=== PATIENT | male | born 1960 | race Native Hawaiian/Other Pacific Islander ===

== ENCOUNTER 2020-09-03 12:25 | Emergency (ER) | payer SELFPAY ==
--- NOTE | 2020-09-03 12:58 | Event Note ---
ED Screening Note Date of service: 09/03/20 Time: 12:57 ED Screening Note: Patient complains of cough and sore throat x4 days Denies past medical history No shortness of breath or hemoptysis This initial assessment/diagnostic orders/clinical plan/treatment(s) is/are subject to change based on patients health status, clinical progression and re- assessment by fellow clinical providers in the ED. Further treatment and workup at subsequent clinical providers discretion. Patient/guardian urged not to elope from the ED as their condition may be serious if not clinically assessed and managed. Initial orders include: Chest x-ray Strep
--- NOTE | 2020-09-03 13:32 | XRay Report ---
CHEST 2 VIEWS INDICATION / CLINICAL INFORMATION: cough. COMPARISON: None available. FINDINGS: SUPPORT DEVICES: None. HEART / MEDIASTINUM: No significant abnormality. LUNGS / PLEURA: Subsegmental opacity in the left lower lobe overlying the spine on lateral view. No p leural effusion. No pneumothorax. ADDITIONAL FINDINGS: No significant additional findings. IMPRESSION: 1. Left lower lobe subsegmental opacity possibly representing developing pneumonia. Recommend clinica l correlation and continued follow-up until resolution. Signer Name: Gaudencio De Leon MD Signed: 09/03/2020 1:28 PM Workstation Name: [id number]
[2020-09-03 14:46] LABS: Basophils # (Auto) 0.1 K/mm3 (0.0-0.1); Basophils % (Auto) 1.7 % (0.0-1.8); Hemoglobin 15.4 gm/dl (11.8-15.2); Lymphocytes # (Auto) 0.9 K/mm3 (1.2-5.4); Lymphocytes % (Auto) 18.2 % (13.4-35.0); Mean Corpuscular HGB Conc 34 % (32-34); Mean Corpuscular Volume 87 fl (84-94); Monocytes # (Auto) 0.5 K/mm3 (0.0-0.8); Monocytes % (Auto) 10.6 % (0.0-7.3); Platelet Count 161 K/mm3 (140-440); Red Blood Count 5.21 M/mm3 (3.65-5.03); Red Cell Distribution Width 13.5 % (13.2-15.2)
[2020-09-03 15:09] LABS: Alanine Aminotransferase 91 units/L (7-56); Albumin 3.8 g/dL (3.9-5); BUN/Creatinine Ratio 18; Blood Urea Nitrogen 14 mg/dL (9-20); Calcium 8.5 mg/dL (8.4-10.2); Hemolysis Index 4
[2020-09-03] MEDS ORDERED: AMOXICILLIN/K CLAV 875/125MG TAB PO ONE (15:45)
[2020-09-03] MEDS ORDERED: AZITHROMYCIN 250 MG TAB PO ONE (15:46)
--- NOTE | 2020-09-03 15:52 | Emergency Department Report ---
ED General Adult HPI - General Chief complaint: Sore Throat Stated complaint: COUGH Time Seen by Provider: 09/03/20 12:56 Source: patient Mode of arrival: Ambulatory Limitations: No Limitations - History of Present Illness Initial comments: Patient is a 59-year-old male with no significant past medical history who presents to the emergency department with complaint of cough and sore throat. Patient reports that he has had symptoms for the past few days. He denies any sick contacts or anyone else is sick in the home. He denies anyone around him has tested positive for COVID-19. He denies chest pain as well as shortness of breath. He does endorse some body aches and fevers. He also has had sore throat. - Related Data Previous Rx's Medication Instructions Recorded Last Taken Type Amoxicillin/Potassium Clav 1 each PO Q12HR 5 Days #9 tablet 09/03/20 Unknown Rx [Augmentin 875-125 Tablet] Azithromycin [Zithromax TAB] 250 mg PO QDAY 4 Days #4 tablet 09/03/20 Unknown Rx Allergies Allergy/AdvReac Type Severity Reaction Status Date / Time No Known Allergies Allergy Unverified 09/03/20 12:54 ED Review of Systems ROS: Stated complaint: COUGH Other details as noted in HPI Constitutional: fever. denies: chills Eyes: denies: eye discharge ENT: throat pain Respiratory: cough. denies: shortness of breath Cardiovascular: denies: chest pain Endocrine: no symptoms reported Gastrointestinal: denies: abdominal pain, nausea, vomiting Genitourinary: denies: dysuria Musculoskeletal: myalgia. denies: back pain Skin: denies: rash Neurological: denies: headache Psychiatric: denies: anxiety, depression Hematological/Lymphatic: denies: easy bleeding ED Past Medical Hx - Past Medical History Previous Medical History?: No - Surgical History Past Surgical History?: No - Medications Home Medications: Home Medications Medication Instructions Recorded Confirmed Last Taken Type Amoxicillin/Potassium Clav 1 each PO Q12HR 5 Days #9 tablet 09/03/20 Unknown Rx [Augmentin 875-125 Tablet] Azithromycin [Zithromax TAB] 250 mg PO QDAY 4 Days #4 tablet 09/03/20 Unknown Rx ED Physical Exam - General Limitations: No Limitations General appearance: alert, in no apparent distress - Head Head exam: Present: atraumatic, normocephalic - Eye Eye exam: Present: normal appearance Pupils: Present: normal accommodation - ENT ENT exam: Present: normal exam - Expanded ENT Exam Expanded Throat exam: Positive: normal inspection - Neck Neck exam: Present: normal inspection - Respiratory Respiratory exam: Present: normal lung sounds bilaterally. Absent: respiratory distress, chest wall tenderness - Cardiovascular Cardiovascular Exam: Present: regular rate, normal rhythm, normal heart sounds - GI/Abdominal GI/Abdominal exam: Present: soft. Absent: distended - Rectal Rectal exam: Present: deferred - Extremities Exam Extremities exam: Present: normal inspection - Back Exam Back exam: Present: normal inspection - Neurological Exam Neurological exam: Present: alert, oriented X3 - Psychiatric Psychiatric exam: Present: normal affect - Skin Skin exam: Present: warm, dry, intact ED Course Vital Signs 09/03/20 12:55 Temperature 99.7 F H Pulse Rate 98 H Respiratory 24 Rate Blood Pressure 127/85 O2 Sat by Pulse 97 Oximetry ED Medical Decision Making - Lab Data Result diagrams: 09/03/20 14:14 09/03/20 14:14 - Radiology Data Radiology results: report reviewed - Medical Decision Making Patient is a 59-year-old male with no significant past medical history who presents to emergency department with complaint of cough and sore throat. Chest x-ray shows possible pneumonia. Given these findings and the fact that we are in a COVID-19 pandemic. I have instructed patient that he will be started on antibiotics with first dose given in the emergency department for community- acquired pneumonia. Patient is also to be tested for COVID-19. Unfortunately the test will not come back on today but he is instructed to quarantine for 14 days. Patient has no chest pain, no shortness of breath. The patient is ambulated and his oxygen saturations did not drop. Critical care attestation.: If time is entered above; I have spent that time in minutes in the direct care of this critically ill patient, excluding procedure time. ED Disposition Clinical Impression: CAP (community acquired pneumonia), Suspected COVID-19 virus infection Disposition: - TO HOME OR SELFCARE Is pt being admited?: No Does the pt Need Aspirin: No Condition: Stable Instructions: Bacterial Pneumonia (ED), Community-Acquired Pneumonia, Adult, COVID-19: How to Protect Yourself and Others - [facility], Prevent the Spread of COVID- 19 if You Are Sick - [facility] Prescriptions: Amoxicillin/Potassium Clav [Augmentin 875-125 Tablet] 1 each PO Q12HR 5 Days #9 tablet Azithromycin [Zithromax TAB] 250 mg PO QDAY 4 Days #4 tablet Referrals: PRIMARY CARE, [Primary Care Provider] - 3-5 Days
[2020-09-03] MEDS ORDERED: ACETAMINOPHEN 500 MG TAB PO ONE (15:59)
[2020-09-03 17:14] VITALS: BP 111/76
== END 2020-09-03 16:00 | disposition home or self-care (01) ==
LOC: ED 12:25
DX: J18.9 Pneumonia, unspecified organism (principal); Z20.828 Contact with and (suspected) exposure to other viral communicable diseases; Z79.899 Other long term (current) drug therapy
CPT/HCPCS: 36415; 71046; 80053; 85025; 87116; 87430